=== PATIENT | female | born 1960 | race Caucasian/White ===

== ENCOUNTER 2021-07-06 23:37 | Inpatient (IN) | payer MEDICARE, MEDICAID ==
[~2021-07-06] VITALS: Ht 172.7 cm; Wt 54.4 kg
[~2021-07-06 23:37] MED LIST: ALBU18HF2 INH; ASPI-1265 PO; BENZ-16 PO; BUPR1FIL3 SL; CHOL20002 PO; CLON-528 PO; CYAN-34 PO; DIPH-1055 PO; FLUT1BLS4 PO; HYDR25TA4 PO; LORA10TA7 PO; MAGN64TA8 PO; NICO-631 TD; ONDA8TAB13 PO; PANT40TA54 PO; SERT25TA PO; SIMV80TA89 PO; ZOLP10TA PO
[2021-07-07 01:37] LABS: ALANINE AMINOTRANSFERASE 41 U/L (12-78); ALBUMIN 4.4 G/DL (3.4-5.0); ALKALINE PHOSPHATASE 88 IU/L (46-116); ASPARTATE AMINO TRANSFERASE 72 U/L (10-37); BILIRUBIN,TOTAL 0.9 MG/DL (0.1-1.0); BLOOD UREA NITROGEN 15 MG/DL (7-18); BUN/CREATININE RATIO 12.6 (6.6-38.0); CALCIUM 8.9 MG/DL (8.5-10.1); CHLORIDE 77 MMOL/L (99-107); CREATININE 1.19 MG/DL (0.40-0.90); GLUCOSE 92 MG/DL (70-104); POTASSIUM 3.4 MMOL/L (3.5-5.1); TOTAL PROTEIN 8.6 G/DL (6.4-8.2); eGFR 46 ML/MIN
[2021-07-07 01:40] LABS: ANION GAP 9 (8-16); TOTAL CARBON DIOXIDE 30.2 MMOL/L (24-32)
[2021-07-07 01:42] LABS: SODIUM 116 MMOL/L (135-145)
[2021-07-07 01:53] LABS: CLARITY,URINE CLEAR (Clear); GLUCOSE, URINE NEGATIVE (Neg); KETONES,URINE TRACE mg/dl (Neg); LEUKOCYTE ESTERASE ,URINE NEGATIVE (Neg); NITRITES, URINE NEGATIVE (Neg); OCCULT BLOOD,URINE TRACE-INTACT (Neg); PROTEIN,URINE 30 mg/dl (Neg); UROBILINOGEN,URINE 0.2 E.U/dL (0.2-1.0)
[2021-07-07] MEDS ORDERED: normal saline 1000ML IV soln IVB ONE (01:55)
[2021-07-07 02:22] LABS: UA COLLECTION TYPE CLN CATCH MIDSTREAM
[2021-07-07 02:23] LABS: BASOPHILS % (AUTO) 0.2 % (0-1); COLOR,URINE YELLOW (Yellow); EOSINOPHILS % (AUTO) 0.6 % (0-6); HEMATOCRIT 42.8 % (35.0-45.0); HEMOGLOBIN 14.9 g/dl (12.0-16.0); LYMPHOCYTES # (AUTO) 2.6 X10'3 (1.1-4.8); LYMPHOCYTES % (AUTO) 29.9 % (21-51); MEAN CORPUSCULAR HGB CONC 34.9 g/dL (33.0-36.5); MEAN CORPUSCULAR VOLUME 100.3 FL (78-98); MEAN PLATELET VOLUME 8.9 FL (7.4-10.4); MONOCYTES # (AUTO) 0.8 X10'3 (0-0.9); MONOCYTES % (AUTO) 9.9 % (2-12); NEUTROPHILS # (AUTO) 5.1 X10'3 (1.8-7.7); NEUTROPHILS % (AUTO) 59.4 % (42-75); PLATELET COUNT 265 X10'3 (140-440); RED BLOOD COUNT 4.27 X10'6 (4.20-5.60); RED CELL DISTRIBUTION WIDTH 13.5 % (11.5-14.5); WHITE BLOOD COUNT 8.5 X10'3 (4.5-11.0)
[2021-07-07 02:35] LABS: RBC,URINE 0-2 /HPF (0-2); WBC,URINE 0-4 /HPF (0-4)
[2021-07-07 02:36] LABS: BACTERIA,URINE FEW /HPF (Neg); MUCUS STRANDS MODERATE /LPF (Neg); SQUAMOUS EPITHELIAL CELL,UR MODERATE /LPF (FEW)
[2021-07-07 02:37] LABS: CAL OXALATE CRYSTALS FEW /HPF (NEGATIVE); HYALINE CASTS 0-3 /LPF (NEGATIVE)
[2021-07-07] MEDS ORDERED: potassium Cl 20 mEq SR tablet PO PRN ×3 (02:50→07:45)
[2021-07-07] MEDS ORDERED: potassium CL 10mEq/100ml bag 100 ML IV PRN (02:50)
[2021-07-07] MEDS ORDERED: magnesium Cl slow-release 64mg tablet PO PRN ×2 (02:50→07:45)
[2021-07-07] MEDS ORDERED: ondansetron/PF 4mg/2ml inj IV PRN (02:50)
[2021-07-07] MEDS ORDERED: magnesium hydroxide 30ml (MOM) UD suspension PO PRN (02:50)
[2021-07-07] MEDS ORDERED: magnesium 4gm in 100ml NS 100 ML IV PRN ×2 (02:50→07:45)
[2021-07-07] MEDS ORDERED: mag hydrox/Alum hydrox/simeth 30ml oral suspension PO PRN (02:50)
[2021-07-07] MEDS ORDERED: magnesium 2GM in 50ml NS 50 ML IV PRN ×2 (02:50→07:45)
[2021-07-07] MEDS ORDERED: metoclopramide 5 mg/ml inj IV PRN (02:50)
[2021-07-07] MEDS ORDERED: acetaminophen 325mg tablet PO PRN ×2 (02:50)
[2021-07-07] MEDS ORDERED: morphine 2 MG/ML inj. syringe IV PRN (02:50)
[2021-07-07] MEDS: normal saline 1000ml 1,000 ML IV SCH ×3 (03:38→22:50)
--- NOTE | 2021-07-07 04:00 | NUR ---
Received report from Sylvain LINDSEY in the ER. Pt arrived on the unit via wheelchair and was able to ambulate to her bed without assistance and a steady gait. Pt was on room air, saline locked and had no signs of distress. Will continue to monitor.
[2021-07-07] MEDS: potassium Cl 20 mEq SR tablet PO PRN ×3 (04:41→11:24)
[2021-07-07] MEDS: HYDROcodone/acetaminophen 10/325mg tab PO PRN ×2 (04:42→15:38)
[2021-07-07 06:00] VITALS: BP 149/65
--- NOTE | 2021-07-07 06:25 | NUR ---
Problems reprioritized. Patient report given, questions answered & plan of care reviewed with Irene LINDSEY.
[2021-07-07] MEDS ORDERED: potassium Cl 40MEQ/1/2NS 520ml 520 ML IV PRN ×2 (07:45)
[2021-07-07] MEDS: docusate sod 100mg capsule PO SCH ×3 (08:00→20:00)
[2021-07-07] MEDS: K and/or MAG REPLACEMENT MC SCH ×4 (08:00→18:58)
[2021-07-07 09:40] LABS: MAGNESIUM 1.5 MG/DL (1.5-2.4); POTASSIUM 3.1 MMOL/L (3.5-5.1)
[2021-07-07 09:43] LABS: HEMOGLOBIN A1C 5.1 % (4.5-6.2)
[2021-07-07] MEDS: enoxaparin 40mg/0.4ml syringe SUBCUT SCH (10:08)
[2021-07-07 11:00] VITALS: BP 152/63
[2021-07-07] MEDS: HYDROcodone/acetaminophen 5mg/325mg tablet PO PRN (11:24)
--- NOTE | 2021-07-07 12:00 | NUR ---
Malnutrition consult: Pt admitted w/ hyponatremia and N/V/D x 1.5days per EMR. Current wt not scaled though consistent w/ wt hx in EMR. Pt states her usual wt is ~125lb and may have lost a couple of pounds over the last few weeks d/t decreased appetite but she does not feel it was significant. No visible signs of muscle/fat wasting observed at bedside, no edema noted. Pt consumed 100% of first meal per documentation. At this time pt does not meet minimum criteria for malnutrition. Addendum: 07/07/21 at [address] Amended: Links added.
[2021-07-07] MEDS ORDERED: ALBU17AE26 PO (12:49)
[2021-07-07] MEDS ORDERED: VENL150C58 PO (12:49)
[2021-07-07] MEDS ORDERED: ZOLP10TA PO (12:49)
[2021-07-07] MEDS ORDERED: BUPR1FIL3 SL (12:49)
[2021-07-07] MEDS ORDERED: CLON-369 PO (12:49)
[2021-07-07] MEDS ORDERED: OMEP20CA16 PO (12:49)
[2021-07-07] MEDS ORDERED: LISI40TA13 PO (12:49)
[2021-07-07 12:59] LABS: ALBUMIN 3.5 G/DL (3.4-5.0); ANION GAP 9 (8-16); BLOOD UREA NITROGEN 15 MG/DL (7-18); BUN/CREATININE RATIO 19.5 (6.6-38.0); CHLORIDE 87 MMOL/L (99-107); CREATININE 0.77 MG/DL (0.40-0.90); GLUCOSE 95 MG/DL (70-104); POTASSIUM 3.6 MMOL/L (3.5-5.1); SODIUM 124 MMOL/L (135-145); eGFR 76 ML/MIN
--- NOTE | 2021-07-07 13:08 | NUR ---
paged at this time for the following concern; Gloria Dick RM 3027 Home meds not ordered yet BP is elevated 152/63 can you take a look and order Irene Chen RN ext [phone]
[2021-07-07] MEDS ORDERED: buprenorphine/naloxone 8MG-2MG SUBlingual film SL PRN (14:05)
[2021-07-07] MEDS ORDERED: albuterol 2.5 MG/3 ML nebule NEB PRN (14:05)
[2021-07-07 15:00] VITALS: BP 148/72
[2021-07-07] MEDS ORDERED: venlafaxine XR 75mg capsule (Q24H) PO ONE (15:35)
[2021-07-07] MEDS ORDERED: lisinopril 20mg tablet PO ONE (15:35)
[2021-07-07] MEDS: aspirin 81mg tab.chew PO SCH (15:39)
[2021-07-07] MEDS: clonazePAM 0.5mg tablet PO PRN (15:40)
[2021-07-07] MEDS: nicotine 7mg patch - 24hr TD SCH (15:41)
[2021-07-07 18:00] VITALS: BP 175/73
[2021-07-07 19:00] VITALS: BP 146/80
[2021-07-07] MEDS: atorvastatin 20mg tablet PO SCH (20:43)
[2021-07-07] MEDS: zolpidem 5mg tablet PO PRN (20:48)
[2021-07-07 22:00] VITALS: BP 159/72
[2021-07-08] MEDS: clonazePAM 0.5mg tablet PO PRN ×3 (00:50→20:56)
[2021-07-08] MEDS: HYDROcodone/acetaminophen 10/325mg tab PO PRN ×4 (00:50→20:56)
[2021-07-08 02:00] VITALS: BP 149/98
[2021-07-08 06:00] VITALS: BP 150/68
[2021-07-08 06:14] LABS: BASOPHILS % (AUTO) 0.3 % (0-1); EOSINOPHILS % (AUTO) 0 % (0-6); HEMATOCRIT 37.1 % (35.0-45.0); HEMOGLOBIN 12.9 g/dl (12.0-16.0); LYMPHOCYTES # (AUTO) 1.1 X10'3 (1.1-4.8); LYMPHOCYTES % (AUTO) 7.7 % (21-51); MEAN CORPUSCULAR HEMOGLOBIN 35.1 PG (27.0-31.0); MEAN CORPUSCULAR HGB CONC 34.8 g/dL (33.0-36.5); MEAN CORPUSCULAR VOLUME 100.8 FL (78-98); MEAN PLATELET VOLUME 8.9 FL (7.4-10.4); MONOCYTES # (AUTO) 0.8 X10'3 (0-0.9); MONOCYTES % (AUTO) 5.5 % (2-12); NEUTROPHILS % (AUTO) 86.5 % (42-75); PLATELET COUNT 154 X10'3 (140-440); RED BLOOD COUNT 3.68 X10'6 (4.20-5.60); RED CELL DISTRIBUTION WIDTH 13.6 % (11.5-14.5); WHITE BLOOD COUNT 13.8 X10'3 (4.5-11.0)
[2021-07-08 06:31] LABS: ALANINE AMINOTRANSFERASE 26 U/L (12-78); ALBUMIN 3.1 G/DL (3.4-5.0); ALBUMIN/GLOBULIN RATIO 0.9 (1.1-1.5); ALKALINE PHOSPHATASE 65 IU/L (46-116); ANION GAP 10 (8-16); ASPARTATE AMINO TRANSFERASE 35 U/L (10-37); BILIRUBIN,TOTAL 0.9 MG/DL (0.1-1.0); BLOOD UREA NITROGEN 9 MG/DL (7-18); BUN/CREATININE RATIO 14.5 (6.6-38.0); CALCIUM 7.9 MG/DL (8.5-10.1); CHLORIDE 91 MMOL/L (99-107); CHOL/HDL RATIO 1.6 (0.00-4.99); CHOLESTEROL 132 MG/DL (0-200); CREATININE 0.62 MG/DL (0.40-0.90); GLUCOSE 106 MG/DL (70-104); HDL CHOLESTEROL 82 MG/DL (35-60); LDL CHOLESTEROL 41 MG/DL (50-100); MAGNESIUM 1.3 MG/DL (1.5-2.4); SODIUM 128 MMOL/L (135-145); TOTAL CARBON DIOXIDE 27.4 MMOL/L (24-32); TOTAL PROTEIN 6.6 G/DL (6.4-8.2); TRIGLYCERIDES 60 MG/DL (20-135); eGFR > 90 ML/MIN
[2021-07-08 06:33] LABS: POTASSIUM 2.7 MMOL/L (3.5-5.1)
--- NOTE | 2021-07-08 07:00 | NUR ---
Patient in room PCU 3020. I have received report from Ines LINDSEY and had the opportunity to ask questions and assume patient care.
[2021-07-08] MEDS: UMECLIDIN PO SCH (08:00)
[2021-07-08] MEDS: venlafaxine XR 75mg capsule (Q24H) PO SCH (08:00)
[2021-07-08] MEDS: K and/or MAG REPLACEMENT MC SCH ×2 (08:00→20:57)
[2021-07-08] MEDS: VILANTER PO SCH (08:00)
[2021-07-08] MEDS: cholecalciferol (vitamin D3) 1,000 unit (25mcg) tablet PO SCH (08:00)
[2021-07-08] MEDS: FLUTICASONE PO SCH (08:00)
[2021-07-08 08:22] LABS: MAGNESIUM 1.4 MG/DL (1.5-2.4)
[2021-07-08 08:23] LABS: POTASSIUM 3.2 MMOL/L (3.5-5.1)
[2021-07-08] MEDS: enoxaparin 40mg/0.4ml syringe SUBCUT SCH (09:33)
[2021-07-08] MEDS: aspirin 81mg tab.chew PO SCH (09:33)
[2021-07-08] MEDS: lisinopril 20mg tablet PO SCH (09:34)
[2021-07-08] MEDS: docusate sod 100mg capsule PO SCH ×2 (09:36→20:57)
[2021-07-08] MEDS: pantoprazole 40mg Tablet.DR PO SCH (09:37)
[2021-07-08] MEDS: potassium Cl 20 mEq SR tablet PO PRN (09:40)
[2021-07-08] MEDS: nicotine 7mg patch - 24hr TD SCH (09:40)
[2021-07-08 11:00] VITALS: BP 127/63
[2021-07-08] MEDS: normal saline 1000ml 1,000 ML IV SCH ×2 (12:48→18:50)
--- NOTE | 2021-07-08 12:53 | NUR ---
Pt would like to talk to Dr Britton about changing dose of Effexor. She refused her prescribed dose this morning, stating the dose is to high, but she would consider taking lower dose medication. Paged Dr Britton PAGER ID: [phone] MESSAGE: Patient [id number] Gloria Dick refused Effexor. Would like a lower dose medication option. Victoria - [employer] Ext.[phone]
[2021-07-08 18:00] VITALS: BP 146/72
[2021-07-08 18:05] VITALS: BP 136/62
[2021-07-08] MEDS: atorvastatin 20mg tablet PO SCH (20:55)
[2021-07-08 22:00] VITALS: BP 150/72
[2021-07-09 02:00] VITALS: BP 168/69
[2021-07-09] MEDS: zolpidem 5mg tablet PO PRN (02:29)
[2021-07-09] MEDS: HYDROcodone/acetaminophen 10/325mg tab PO PRN (02:56)
[2021-07-09] MEDS: normal saline 1000ml 1,000 ML IV SCH ×2 (05:29→09:09)
[2021-07-09 05:56] LABS: BASOPHILS % (AUTO) 0.7 % (0-1); EOSINOPHILS # (AUTO) 0.1 X10'3 (0-0.9); EOSINOPHILS % (AUTO) 1.1 % (0-6); HEMATOCRIT 36.3 % (35.0-45.0); HEMOGLOBIN 12.6 g/dl (12.0-16.0); LYMPHOCYTES # (AUTO) 1.3 X10'3 (1.1-4.8); LYMPHOCYTES % (AUTO) 19.3 % (21-51); MEAN CORPUSCULAR HEMOGLOBIN 35.1 PG (27.0-31.0); MEAN CORPUSCULAR HGB CONC 34.6 g/dL (33.0-36.5); MEAN CORPUSCULAR VOLUME 101.5 FL (78-98); MEAN PLATELET VOLUME 8.6 FL (7.4-10.4); MONOCYTES # (AUTO) 0.5 X10'3 (0-0.9); MONOCYTES % (AUTO) 6.9 % (2-12); NEUTROPHILS # (AUTO) 4.9 X10'3 (1.8-7.7); PLATELET COUNT 135 X10'3 (140-440); RED BLOOD COUNT 3.58 X10'6 (4.20-5.60); RED CELL DISTRIBUTION WIDTH 13.2 % (11.5-14.5); WHITE BLOOD COUNT 6.8 X10'3 (4.5-11.0)
[2021-07-09 06:00] VITALS: BP 169/82
[2021-07-09 06:25] LABS: ALANINE AMINOTRANSFERASE 25 U/L (12-78); ALBUMIN/GLOBULIN RATIO 0.9 (1.1-1.5); ALKALINE PHOSPHATASE 65 IU/L (46-116); ANION GAP 8 (8-16); ASPARTATE AMINO TRANSFERASE 29 U/L (10-37); BILIRUBIN,TOTAL 0.5 MG/DL (0.1-1.0); BLOOD UREA NITROGEN 7 MG/DL (7-18); BUN/CREATININE RATIO 13.2 (6.6-38.0); CALCIUM 7.9 MG/DL (8.5-10.1); CHLORIDE 97 MMOL/L (99-107); CREATININE 0.53 MG/DL (0.40-0.90); GLUCOSE 98 MG/DL (70-104); MAGNESIUM 2.1 MG/DL (1.5-2.4); POTASSIUM 3.3 MMOL/L (3.5-5.1); SODIUM 132 MMOL/L (135-145); TOTAL CARBON DIOXIDE 26.8 MMOL/L (24-32); TOTAL PROTEIN 6.5 G/DL (6.4-8.2); eGFR > 90 ML/MIN
[2021-07-09] MEDS: K and/or MAG REPLACEMENT MC SCH (08:00)
[2021-07-09] MEDS: FLUTICASONE PO SCH (08:00)
[2021-07-09] MEDS: UMECLIDIN PO SCH (08:00)
[2021-07-09] MEDS: docusate sod 100mg capsule PO SCH (08:00)
[2021-07-09] MEDS: VILANTER PO SCH (08:00)
[2021-07-09] MEDS: pantoprazole 40mg Tablet.DR PO SCH (08:47)
[2021-07-09] MEDS: aspirin 81mg tab.chew PO SCH (08:47)
[2021-07-09] MEDS: venlafaxine XR 75mg capsule (Q24H) PO SCH ×2 (08:47→08:58)
[2021-07-09] MEDS: HYDROcodone/acetaminophen 5mg/325mg tablet PO PRN ×2 (08:47→13:41)
[2021-07-09] MEDS: cholecalciferol (vitamin D3) 1,000 unit (25mcg) tablet PO SCH (08:47)
[2021-07-09] MEDS: lisinopril 20mg tablet PO SCH (08:48)
[2021-07-09] MEDS: nicotine 7mg patch - 24hr TD SCH (08:49)
[2021-07-09] MEDS: enoxaparin 40mg/0.4ml syringe SUBCUT SCH (08:49)
[2021-07-09] MEDS: potassium Cl 20 mEq SR tablet PO PRN ×2 (09:04→13:45)
[2021-07-09] MEDS: clonazePAM 0.5mg tablet PO PRN (09:04)
--- NOTE | 2021-07-09 09:04 | NUR ---
Resource RN Medications given for primary nurse Deo Rowan U
[2021-07-09] MEDS ORDERED: AMLO2.5T2 PO (10:52)
[2021-07-09 11:00] VITALS: BP 168/79
--- NOTE | 2021-07-09 13:46 | NUR ---
Resource RN Meds passed for primary RN Dinora. Anum U
--- NOTE | 2021-07-09 14:15 | NUR ---
Patient stable for discharge. PIV removed with catheter intact. Discharge instructions and patient verbalized understanding. Cori RN made referral for [facility] and patient is agreeable. Patient transferred to son's car safely via wheelchair.
== END 2021-07-09 16:09 | disposition home or self-care (01) | DRG 391 ==
LOC: ER 23:38 → ED HOLD 07-07 02:52 → PCU 3S 07-07 04:05
PROVIDERS: ADMIT Internal Medicine; ATTEND Internal Medicine
DX: K52.9 Noninfective gastroenteritis and colitis, unspecified (principal); N17.0 Acute kidney failure with tubular necrosis; E87.1 Hypo-osmolality and hyponatremia; Z20.822 Contact with and (suspected) exposure to COVID-19; E78.00 Pure hypercholesterolemia, unspecified; E78.5 Hyperlipidemia, unspecified; E86.0 Dehydration; T50.2X5A Adverse effect of carbonic-anhydrase inhibitors, benzothiadiazides and other diuretics, initial encounter; F17.210 Nicotine dependence, cigarettes, uncomplicated; F41.9 Anxiety disorder, unspecified; E87.6 Hypokalemia; F32.A Depression, unspecified; G89.29 Other chronic pain; I10 Essential (primary) hypertension; J44.9 Chronic obstructive pulmonary disease, unspecified; Z79.899 Other long term (current) drug therapy; Z82.49 Family history of ischemic heart disease and other diseases of the circulatory system; Z90.49 Acquired absence of other specified parts of digestive tract; Z81.8 Family history of other mental and behavioral disorders; Z71.6 Tobacco abuse counseling; Y92.89 Other specified places as the place of occurrence of the external cause
CPT/HCPCS: 36415; 80048; 80053; 80061; 81001; 83036; 83735; 84132; 85025; 87081; 87635; 99285; C9803; G0378; J1650; J3475; J7030

== ENCOUNTER 2021-10-05 23:15 | Emergency (ER) | payer MEDICARE, MEDICAID ==
[~2021-10-05] VITALS: Ht 167.6 cm; Wt 57.0 kg
[~2021-10-05 23:15] MED LIST changes: +ALBU17AE26 PO; -ALBU18HF2 INH; -BENZ-16 PO; +CLON-369 PO; -CLON-528 PO; -CYAN-34 PO; -DIPH-1055 PO; -HYDR25TA4 PO; +LISI40TA13 PO; -LORA10TA7 PO; -MAGN64TA8 PO; -NICO-631 TD; +OMEP20CA16 PO; -ONDA8TAB13 PO; -PANT40TA54 PO; -SERT25TA PO; +VENL150C58 PO
[2021-10-06 00:24] LABS: BASOPHILS # (AUTO) 0.1 X10'3 (0-0.2); BASOPHILS % (AUTO) 1.3 % (0-1); EOSINOPHILS % (AUTO) 0.6 % (0-6); HEMATOCRIT 36.7 % (35.0-45.0); HEMOGLOBIN 12.8 g/dl (12.0-16.0); LYMPHOCYTES # (AUTO) 2.5 X10'3 (1.1-4.8); LYMPHOCYTES % (AUTO) 35.4 % (21-51); MEAN CORPUSCULAR HEMOGLOBIN 34.7 PG (27.0-31.0); MEAN CORPUSCULAR HGB CONC 34.8 g/dL (33.0-36.5); MEAN CORPUSCULAR VOLUME 99.8 FL (78-98); MEAN PLATELET VOLUME 7.3 FL (7.4-10.4); MONOCYTES # (AUTO) 0.7 X10'3 (0-0.9); MONOCYTES % (AUTO) 10.3 % (2-12); NEUTROPHILS # (AUTO) 3.7 X10'3 (1.8-7.7); NEUTROPHILS % (AUTO) 52.4 % (42-75); PLATELET COUNT 288 X10'3 (140-440); RED BLOOD COUNT 3.68 X10'6 (4.20-5.60); WHITE BLOOD COUNT 7.1 X10'3 (4.5-11.0)
[2021-10-06 00:44] LABS: ALANINE AMINOTRANSFERASE 20 U/L (12-78); ALBUMIN 3.2 G/DL (3.4-5.0); ALBUMIN/GLOBULIN RATIO 0.8 (1.1-1.5); ALKALINE PHOSPHATASE 113 IU/L (46-116); ANION GAP 10 (8-16); ASPARTATE AMINO TRANSFERASE 59 U/L (10-37); BILIRUBIN,TOTAL 0.3 MG/DL (0.1-1.0); BLOOD UREA NITROGEN 10 MG/DL (7-18); BUN/CREATININE RATIO 11.6 (6.6-38.0); CALCIUM 8.2 MG/DL (8.5-10.1); CHLORIDE 94 MMOL/L (99-107); CREATININE 0.86 MG/DL (0.40-0.90); GLUCOSE 102 MG/DL (70-104); SODIUM 135 MMOL/L (135-145); TOTAL PROTEIN 7.4 G/DL (6.4-8.2); eGFR 67 ML/MIN
[2021-10-06 00:49] LABS: POTASSIUM 2.8 MMOL/L (3.5-5.1)
[2021-10-06] MEDS ORDERED: potassium Cl 20 mEq SR tablet PO STA (02:11)
[2021-10-06 02:22] LABS: MAGNESIUM 1.6 MG/DL (1.5-2.4)
[2021-10-06] MEDS ORDERED: ondansetron/PF 4mg/2ml inj IV ONE (02:50)
[2021-10-06] MEDS ORDERED: morphine 4 MG/ML inj SYRINge IV ONE (02:50)
[2021-10-06 06:23] VITALS: BP 113/55
== END 2021-10-06 07:27 | disposition home or self-care (01) ==
LOC: ER 23:15
DX: R60.0 Localized edema (principal); R53.1 Weakness; J44.9 Chronic obstructive pulmonary disease, unspecified; E87.6 Hypokalemia; R30.9 Painful micturition, unspecified; E78.00 Pure hypercholesterolemia, unspecified; I10 Essential (primary) hypertension; F17.200 Nicotine dependence, unspecified, uncomplicated; Z90.49 Acquired absence of other specified parts of digestive tract; Z90.89 Acquired absence of other organs; Z79.82 Long term (current) use of aspirin; Z79.899 Other long term (current) drug therapy
CPT/HCPCS: 36415; 71045; 71250; 74176; 80053; 83735; 83880; 84484; 85025; 93005; 96374; 96375; 99285; J2270; J2405; A4615